=== PATIENT | male | born 1995 ===

== ENCOUNTER 2023-12-25 15:31 | Emergency (ER) | payer OTHER, SELFPAY ==
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
[2023-12-25 15:40] VITALS: BP 138/90; PULSE 73; RESP 18; TEMP 36.5; O2SAT 99; BMI 19.3
== END 2023-12-25 19:14 | disposition home or self-care (01) ==
PROVIDERS: Emergency Provider Emergency Medicine
DX: S13.4XXA Sprain of ligaments of cervical spine, initial encounter (principal); S39.012A Strain of muscle, fascia and tendon of lower back, initial encounter; S06.0X0A Concussion without loss of consciousness, initial encounter; M54.2 Cervicalgia; R51.9 Headache, unspecified; M25.511 Pain in right shoulder; V43.62XA Car passenger injured in collision with other type car in traffic accident, initial encounter; Y93.9 Activity, unspecified; Y92.410 Unspecified street and highway as the place of occurrence of the external cause; Y99.8 Other external cause status
CPT/HCPCS: 70450; 72100; 72125; 73030; 99283; 99284